=== PATIENT | male | born 1960 | race American Indian/Alaskan Native ===

== ENCOUNTER 2016-10-30 09:09 | Inpatient (IN) | payer OTHER ==
[2016-10-30] MEDS ORDERED: ZOFRAN IV ONE (10:41)
[2016-10-30] MEDS ORDERED: NACL 0.9% 1000 ML 1,000 ML IV ONE ×2 (10:41→11:12)
[2016-10-30] MEDS ORDERED: TORADOL IV ONE (10:41)
--- NOTE | 2016-10-30 10:43 | Emergency Department Report ---
ED Abdominal Pain HPI - General Chief Complaint: Abdominal Pain Stated Complaint: ABD PAIN Time Seen by Provider: 10/30/16 10:25 Source: EMS Mode of arrival: Stretcher Limitations: No Limitations - History of Present Illness MD Complaint: abdominal pain -: Gradual Location: diffuse Radiation: none Migration to: no migration Severity: moderate Severity scale (0 -10): 5 Quality: cramping, aching, fullness Consistency: intermittent Improves With: nothing Worsens With: nothing Associated Symptoms: nausea, vomiting, diarrhea, chills. denies: constipation, dysuria, hematemesis, hematochezia, melena, hematuria, anorexia - Related Data Home Medications Medication Instructions Recorded Confirmed Last Taken No Known Home Medications [No 02/24/15 02/24/15 Unknown Reported Home Medications] Allergies Allergy/AdvReac Type Severity Reaction Status Date / Time No Known Allergies Allergy Verified 02/24/15 23:27 ED Review of Systems ROS: Stated complaint: ABD PAIN Other details as noted in HPI Comment: All other systems reviewed and negative ED Past Medical Hx - Past Medical History Hx Hypertension: Yes - Social History Smoking Status: Current Every Day Smoker Substance Use Type: Alcohol, Cocaine, Marijuana - Medications Home Medications: Home Medications Medication Instructions Recorded Confirmed Last Taken Type No Known Home Medications [No 02/24/15 02/24/15 Unknown History Reported Home Medications] ED Physical Exam - General Limitations: No Limitations General appearance: alert, in no apparent distress - Head Head exam: Present: atraumatic, normocephalic - Eye Eye exam: Present: normal appearance, PERRL - ENT ENT exam: Present: mucous membranes moist - Neck Neck exam: Present: normal inspection - Respiratory Respiratory exam: Present: normal lung sounds bilaterally. Absent: respiratory distress - Cardiovascular Cardiovascular Exam: Present: regular rate, normal rhythm. Absent: systolic murmur, diastolic murmur, rubs, gallop - GI/Abdominal GI/Abdominal exam: Present: soft, normal bowel sounds. Absent: distended, tenderness, guarding, rebound, rigid, hyperactive bowel sounds, hypoactive bowel sounds, organomegaly, mass, bruit, pulsatile mass - Rectal Rectal exam: Present: deferred - Extremities Exam Extremities exam: Present: normal inspection - Back Exam Back exam: Present: normal inspection - Neurological Exam Neurological exam: Present: alert, oriented X3 - Psychiatric Psychiatric exam: Present: normal affect, normal mood - Skin Skin exam: Present: warm, dry, intact, normal color. Absent: rash ED Course Vital Signs 10/30/16 09:30 Temperature 98.3 F Pulse Rate 90 Respiratory 16 Rate Blood Pressure 140/90 O2 Sat by Pulse 97 Oximetry ED Medical Decision Making - Lab Data Result diagrams: 10/30/16 10:25 10/30/16 10:25 - EKG Data EKG shows normal: sinus rhythm - Radiology Data Radiology results: report reviewed, image reviewed - Medical Decision Making will need admission for UGI bleed, vomititng blood with HG at 5.2, transfusing blood at this time, talked to dr. Scott and agree with plan for admission. waiting on GI to call me too. Critical care time in (mins) excluding proc time.: 45 Critical care attestation.: If time is entered above; I have spent that time in minutes in the direct care of this critically ill patient, excluding procedure time. ED Disposition Clinical Impression: Upper gastrointestinal bleeding Disposition: OP ADMITTED IP TO THIS HOSP Is pt being admited?: Yes Does the pt Need Aspirin: No Condition: Fair Referrals: PRIMARY CARE, [Primary Care Provider] - 3-5 Days Time of Disposition: 11:25
[2016-10-30 10:50] LABS: Basophils % (Auto) 0.4 % (0.0-1.8); Eosinophils % (Auto) 0.1 % (0.0-4.3); Mean Corpuscular HGB Conc 31 % (32-34); Mean Corpuscular Volume 81 fl (84-94); Platelet Count 262 K/mm3 (140-440); Red Blood Count 2.09 M/mm3 (3.65-5.03); White Blood Count 13.7 K/mm3 (4.5-11.0)
[2016-10-30 10:54] LABS: Alanine Aminotransferase 7 units/L (7-56); Alkaline Phosphatase 58 units/L (35-129); Anion Gap 17 mmol/L; BUN/Creatinine Ratio 41.53; Blood Urea Nitrogen 54 mg/dL (9-20); Calcium 8.5 mg/dL (8.4-10.2); Carbon Dioxide 34 mmol/L (22-30); Chloride 91.7 mmol/L (98-107); Glucose 114 mg/dL (75-100); Hemoglobin 5.2 gm/dl (11.8-15.2); Lipase 35 units/L (13-60); Sodium 140 mmol/L (137-145); Total Protein 6.1 g/dL (6.3-8.2)
[2016-10-30 10:55] LABS: Hematocrit 16.9 % (35.5-45.6); Mean Corpuscular Hemoglobin 25 pg (28-32); Red Cell Distribution Width 22.3 % (13.2-15.2)
[2016-10-30] MEDS ORDERED: NACL 0.9% 500 ML 500 ML IV ONE (11:12)
[2016-10-30] MEDS ORDERED: PROTONIX IV ONE (11:13)
--- NOTE | 2016-10-30 11:38 | Admit Criteria Form ---
Admission Criteria Documentation: GASTROINTESTINAL BLEEDING, UPPER Clinical Indications for Admission to Inpatient Care ( Place 'X' for any and all applicable criteria): Admission is indicated for ANY ONE of the following(1)(2)(3)(4)(5)(6): [X ]I. Active bleeding (eg, fresh voluminous blood in emesis or nasogastric aspirate) [ ]II. Associated conditions requiring hospitalization (eg, perforation, obstruction from ulcer) [ ]III. Inpatient admission required rather than observation care (Also use Gastrointestinal Bleeding, Upper: Observation Care as appropriate) because of ANY ONE of the following: [ ]a) Hemodynamic instability that is severe or persistent [ ]b) Anemia requiring inpatient admission as indicated by ALL of the following: [ ]1) Presence of significant clinical finding indicated by ANY ONE of the following: [ ]A. Tachycardia for age [ ]B. Orthostatic vital sign changes [ ]C. Cognitive impairment [ ]D. Heart failure [ ]E. Chest pain [ ]F. Exertional dyspnea [ ]G. Other findings suggesting inadequate perfusion (eg, peripheral or myocardial ischemia, end organ dysfunction) [ ]2) Initial (eg, emergency department, observation care) treatment with transfusion or volume replacement is judged inappropriate (due to severity of the finding) or has been ineffective [ ]c) Severe pain requiring acute inpatient management [ ]d) High-risk low platelet count [ ]e) IV fluid to replace significant ongoing losses (greater than 3 L/m2 per day) [ ]f) Immediate inpatient surgery [ ]g) Other condition, treatment or monitoring requiring inpatient admission [ ]IV. Severe liver disease (eg, cirrhosis) [ ]V. Significant active comorbid disease [ ]. Anticoagulation therapy [ ]VII. High-risk endoscopic features (arterial bleeding, adherent clot, nonbleeding visible vessel, varices, flat red spots, ulcer size greater than 2 cm, or portal hypertensive gastropathy) [ ]VIII. Previous aortic graft placement or known aortic aneurysm [ ]IX. Coagulopathy [ ]X. Syncope Extended stay beyond goal length of stay may be needed for(1)(2): [ ]a) Emergency surgery [ ]b) Varices [ ]c) Coagulation abnormalities [ ]d) Recurrent, obscure, or persistent bleeding or continued Hemodynamic instability [ ]e) Associated conditions requiring surgery (eg, perforated gastric ulcer, gastric outlet obstruction) [ ]f) Active comorbidities (eg, renal insufficiency, heart failure, pre- existing liver disease) The original [facility] [employer] content created by [facility] [employer] has been revised. The portions of the content which have been revised are identified through the use of italic text or in bold, and [facility] has neither reviewed nor approved the modified material. All other unmodified content is copyright [facility] [employer] Please see references footnoted in the original [facility] [employer] edition 2016 Admission Criteria Met: Yes
--- NOTE | 2016-10-30 12:01 | Gastroenterology Consultation ---
Addendum entered and electronically signed by HAILY KAUFFMAN NP 10/30/16 12: 09: -No hx of liver disease- PLT count WNL, PT/INR pending Original Note: History of Present Illness - Reason for Consult Consult date: 10/30/16 GI bleed Requesting physician: NIKKIE HUNT - History of Present Illness Pt is a 55 y/o male who is homeless. Admitted for GI bleed with HBG 5.2. Pt reports generalized abd pain, vomiting coffee-ground emesis and melena x 2 days. Denies SOB or CP. Admits to use of cocaine, marijuana, tobacco and daily alcohol of 2 beers. Denies hx of liver disease. No NSAID use. Denies Fhx of CA or ever having EGD/colonoscopy. Past History Past Medical History: No medical history Past Surgical History: No surgical history Social history: single (homeless), smoking, alcohol abuse Medications and Allergies Allergies Allergy/AdvReac Type Severity Reaction Status Date / Time No Known Allergies Allergy Verified 02/24/15 23:27 Home Medications Medication Instructions Recorded Confirmed Last Taken Type No Known Home Medications [No 02/24/15 10/30/16 Unknown History Reported Home Medications] Active Meds: Active Medications Sodium Chloride (Nacl 0.9% 1000 Ml) 1,000 mls @ 999 mls/hr IV BOLUS ONE Stop: 10/30/16 12:12 Review of Systems - Review of Systems All systems: negative Gastrointestinal: abdominal pain, nausea, vomiting, diarrhea, coffee ground emesis, melena Exam - Constitutional Vital Signs: Temp Pulse Resp BP Pulse Ox 98.3 F 90 16 140/90 97 10/30/16 09:30 10/30/16 09:30 10/30/16 09:30 10/30/16 09:30 10/30/16 09:30 General appearance: mild distress - EENT Eyes: PERRL, EOM intact ENT: hearing intact - Neck Neck: normal ROM - Respiratory Respiratory: bilateral: CTA - Cardiovascular Rhythm: regular Heart Sounds: Present: S1 & S2 Extremities: No edema - Gastrointestinal General gastrointestinal: Present: soft, tender (generalized), non-distended, normal bowel sounds - Integumentary Integumentary: Present: warm, dry - Neurologic Neurological: alert and oriented x3 - Psychiatric Psychiatric: appropriate mood/affect, cooperative - Labs CBC & Chem 7: 06/01/17 10:25 10/30/16 10:25 Lab Results: Laboratory Results - last 24 hr 10/30/16 10/30/16 10:25 10:25 WBC 13.7 H RBC 2.09 L Hgb 5.2 L* Hct 16.9 L* MCV 81 L MCH 25 L MCHC 31 L RDW 22.3 H Plt Count 262 Lymph % (Auto) 14.2 [place] % (Auto) 9.9 H Eos % (Auto) 0.1 Baso % (Auto) 0.4 Lymph # 1.9 [place] # 1.4 H Eos # 0.0 Baso # 0.1 Seg Neutrophils % 75.4 H Seg Neutrophils # 10.3 H Sodium 140 Potassium 3.0 L Chloride 91.7 L Carbon Dioxide 34 H Anion Gap 17 BUN 54 H Creatinine 1.3 Estimated GFR > 60 BUN/Creatinine Ratio 41.53 Glucose 114 H Calcium 8.5 Total Bilirubin 0.20 AST 13 ALT 7 Alkaline Phosphatase 58 Total Protein 6.1 L Albumin 3.0 L Albumin/Globulin Ratio 1.0 Lipase 35 Assessment and Plan 1. GI bleed 2. coffee-ground emesis 3. melena - HGB 5.2- pending transfusion of 2 units - continue to monitor H&H post transfusion -Start on PPI gtt -Keep NPO -Avoid any blood thinning medications -Will schedule for EGD tomorrow, unless active bleeding occurs
[2016-10-30 12:18] LABS: INR 1.02 (0.87-1.13)
[2016-10-30] MEDS ORDERED: TYLENOL PO PRN (14:04)
[2016-10-30] MEDS ORDERED: DULCOLAX PR PRN (14:04)
[2016-10-30] MEDS ORDERED: MILK OF MAGNESIA PO PRN (14:04)
[2016-10-30] MEDS ORDERED: ATIVAN IV PRN (14:04)
[2016-10-30] MEDS: PROTONIX 80 MG in NACL 0.9% 100 ML IV SCH ×2 (14:09→23:33)
--- NOTE | 2016-10-30 14:11 | History and Physical Report ---
History of Present Illness Date of examination: 10/30/16 Date of admission: 10/30/16 11:25 Chief complaint: Abdomin pain and bloody diarrhea History of present illness: 55-year-old -[place] male presented to the ED with complaints of abdomen pain and bloody stools started this morning. Patient stated that he had multiple vomiting and nausea yesterday. Patient could not described the emesis content. Patient has a past medical history of hypertension, diabetes, alcohol abuse, oral surgeries of teeth extractions. All 4 top front teeth n some lower teeth are missing. Patient reported that he drinks 1 to 2 beers daily and he is homeless. Past History Past Medical History: No medical history, diabetes, hypertension Past Surgical History: No surgical history, Other (Oral (teeth extractions) ) Social history: single (homeless), smoking, alcohol abuse Family history: hypertension Medications and Allergies Allergies Allergy/AdvReac Type Severity Reaction Status Date / Time No Known Allergies Allergy Verified 02/24/15 23:27 Home Medications Medication Instructions Recorded Confirmed Last Taken Type No Known Home Medications [No 02/24/15 10/30/16 Unknown History Reported Home Medications] Active Meds: Active Medications Pantoprazole Sodium 80 mg/ (Sodium Chloride) 100 mls @ 10 mls/hr IV Q10H JUANA PRN Reason: 8 MG/HR Last Admin: 10/30/16 14:09 Dose: 8 mg/hr, 10 mls/hr Review of Systems Constitutional: fatigue, malaise, no weight loss, no weight gain, no fever, no chills Cardiovascular: no chest pain, no syncope Respiratory: no cough, no cough with sputum Gastrointestinal: abdominal pain, vomiting, diarrhea, melena, no hematemesis, no coffee ground emesis Rectal: no pain Musculoskeletal: no gait dysfunction Integumentary: no rash Neurological: no head injury, no syncope Psychiatric: no anxiety, no suicidal ideation, no depression Endocrine: fatigue Exam - Constitutional Vitals: Temp Pulse Resp BP Pulse Ox 97.9 F 90 14 142/68 100 10/30/16 13:06 10/30/16 13:06 10/30/16 13:06 10/30/16 13:06 10/30/16 13:06 General appearance: Present: malodorous (Oral). Absent: no acute distress - EENT Eyes: Present: PERRL, EOM intact ENT: hearing intact, clear oral mucosa - Neck Neck: Present: supple, normal ROM - Respiratory Respiratory effort: normal Respiratory: bilateral: CTA - Cardiovascular Heart Sounds: Present: S1 & S2. Absent: rub, click - Extremities Extremities: pulses intact, No edema Peripheral Pulses: within normal limits - Abdominal General gastrointestinal: Present: soft. Absent: non-tender Male genitourinary: Present: normal - Integumentary Integumentary: Present: warm, dry - Musculoskeletal Musculoskeletal: generalized weakness - Psychiatric Psychiatric: cooperative - Neurologic Neurologic: moves all extremities - Allied Health Allied health notes reviewed: nursing Results - Labs CBC & Chem 7: 10/30/16 10:25 10/30/16 10:25 Labs: Laboratory Last Values WBC 13.7 K/mm3 (4.5-11.0) H 10/30/16 10:25 RBC 2.09 M/mm3 (3.65-5.03) L 10/30/16 10:25 Hgb 5.2 gm/dl (11.8-15.2) L* 10/30/16 10:25 Hct 16.9 % (35.5-45.6) L* 10/30/16 10:25 MCV 81 fl (84-94) L 10/30/16 10:25 MCH 25 pg (28-32) L 10/30/16 10:25 MCHC 31 % (32-34) L 10/30/16 10:25 RDW 22.3 % (13.2-15.2) H 10/30/16 10:25 Plt Count 262 K/mm3 (140-440) 10/30/16 10:25 Lymph % (Auto) 14.2 % (13.4-35.0) 10/30/16 10:25 [place] % (Auto) 9.9 % (0.0-7.3) H 10/30/16 10:25 Eos % (Auto) 0.1 % (0.0-4.3) 10/30/16 10:25 Baso % (Auto) 0.4 % (0.0-1.8) 10/30/16 10:25 Lymph # 1.9 K/mm3 (1.2-5.4) 10/30/16 10:25 [place] # 1.4 K/mm3 (0.0-0.8) H 10/30/16 10:25 Eos # 0.0 K/mm3 (0.0-0.4) 10/30/16 10:25 Baso # 0.1 K/mm3 (0.0-0.1) 10/30/16 10:25 Seg Neutrophils % 75.4 % (40.0-70.0) H 10/30/16 10:25 Seg Neutrophils # 10.3 K/mm3 (1.8-7.7) H 10/30/16 10:25 PT 13.3 Sec. (12.2-14.9) 10/30/16 11:38 INR 1.02 (0.87-1.13) 10/30/16 11:38 Sodium 140 mmol/L (137-145) 10/30/16 10:25 Potassium 3.0 mmol/L (3.6-5.0) L 10/30/16 10:25 Chloride 91.7 mmol/L (98-107) L 10/30/16 10:25 Carbon Dioxide 34 mmol/L (22-30) H 10/30/16 10:25 Anion Gap 17 mmol/L 10/30/16 10:25 BUN 54 mg/dL (9-20) H 10/30/16 10:25 Creatinine 1.3 mg/dL (0.8-1.5) 10/30/16 10:25 Estimated GFR > 60 ml/min 10/30/16 10:25 BUN/Creatinine Ratio 41.53 % 10/30/16 10:25 Glucose 114 mg/dL (75-100) H 10/30/16 10:25 Calcium 8.5 mg/dL (8.4-10.2) 10/30/16 10:25 Total Bilirubin 0.20 mg/dL (0.1-1.2) 10/30/16 10:25 AST 13 units/L (5-40) 10/30/16 10:25 ALT 7 units/L (7-56) 10/30/16 10:25 Alkaline Phosphatase 58 units/L (35-129) 10/30/16 10:25 Total Protein 6.1 g/dL (6.3-8.2) L 10/30/16 10:25 Albumin 3.0 g/dL (3.9-5) L 10/30/16 10:25 Albumin/Globulin Ratio 1.0 % 10/30/16 10:25 Lipase 35 units/L (13-60) 10/30/16 10:25 Blood Type O POSITIVE 10/30/16 11:37 Antibody Screen TNR 10/30/16 11:37 JUAN JOSÉ Antibody Screen Negative 10/30/16 11:37 Crossmatch See Detail 10/30/16 11:37 Assessment and Plan Assessment and plan: 55-year-old -[place] male presented to the ED with complaints of abdomen pain and bloody stools started this morning. Patient stated that he had multiple vomiting and nausea yesterday. Patient could not described the emesis content. Patient has a past medical history of hypertension, diabetes, alcohol abuse, oral surgeries of teeth extractions. All 4 top front teeth n some lower teeth are missing. Patient reported that he drinks 1 to 2 beers daily and he is homeless. On exam, patient alert oriented and seemed a little agitated because he wants to eat. Patient denies current abdomen pain, diarrhea , fever, chills. 1. Anemia due to Acute GI Blood loss - chest x-ray, EKG, serial H&H, packed red blood cells ordered 2. GI Bleed - Consult GI, Pt NPO, IV Protonix 3. Abdomin pain not due to trauma - pain medication when necessary ordered 4. Malnutrition - Albumin 3.0 - Phonograph Mechanic Consult 5. Alcohol abuse-patient placed on CIWA protocol 6. Hypertension- patient currently normotensive, antihypertensive medication when necessary ordered 7. DM-monitor Accu-Checks, insulin sliding scale ordered 8. DVT prophylaxis-Lovenox ordered Advance Directives: Yes VTE prophylaxis?: Chemical Plan of care discussed with patient/family: Yes
[2016-10-30] MEDS ORDERED: D50W (25GM) IV PRN (14:13)
--- NOTE | 2016-10-30 14:31 | XRay Report ---
ABDOMEN RADIOGRAPHS INDICATION: Abdominal pain. COMPARISON: 02/25/2015 CT. FINDINGS: Frontal abdominal radiographs demonstrate nonobstructive bowel gas pattern. Colonic stool, most about the hepatic flexure/possible constipation. Approximately 5 mm left renal calculus inferiorly again noted. No pneumatosis or pneumoperitoneum. Clear visualized lung bases. Bilateral SI joint degenerative sclerosis. Mild lumbar degenerative changes and curvature, possibly positional versus scoliosis. CONCLUSION: No acute abdominal radiographic abnormality with possible constipation and stable 5 mm left lower renal calculus, as described. Thank you for the opportunity to participate in this patient's care.
[2016-10-30] MEDS ORDERED: LOVENOX SUB-Q ONE (14:43)
[2016-10-30] MEDS: NOVOLOG SUB-Q SCH ×2 (17:44→22:53)
[2016-10-30] MEDS ORDERED: PNEUMOVAX 23 IM ONE (20:56)
[2016-10-30] MEDS ORDERED: FLUARIX QUAD 2016-2017(36 MOS+) IM ONE (20:56)
[2016-10-31] MEDS ORDERED: PROTONIX 80 MG in NACL 0.9% 100 ML IV SCH (01:00)
[2016-10-31] MEDS: NACL 0.45% 1000 ML 1,000 ML IV SCH ×2 (07:09→17:11)
[2016-10-31 09:56] LABS: Hemoglobin 6.1 gm/dl (11.8-15.2); Mean Corpuscular HGB Conc 32 % (32-34); Mean Corpuscular Hemoglobin 27 pg (28-32); Mean Corpuscular Volume 83 fl (84-94); Platelet Count 211 K/mm3 (140-440); Red Blood Count 2.31 M/mm3 (3.65-5.03); White Blood Count 10.8 K/mm3 (4.5-11.0)
[2016-10-31 10:02] LABS: Hematocrit 19.2 % (35.5-45.6); Red Cell Distribution Width 20.3 % (13.2-15.2)
[2016-10-31] MEDS: NOVOLOG SUB-Q SCH ×4 (10:49→22:39)
[2016-10-31] MEDS ORDERED: NACL 0.9% 500 ML 500 ML IV ONE ×2 (11:07→22:00)
--- NOTE | 2016-10-31 11:09 | Progress Note ---
Assessment and Plan Assessment and plan: --Severe Acute blood loss anemia Secondary to GI bleeding, type and cross transfuse total 4 units of PRBC Closely monitor H&H, GI following --Acute gastrointestinal bleeding Initially patient was nothing by mouth status for endoscopy No clear liquids, endoscopy scheduled for tomorrow GI following --[id number] protein calorie malnutrition Supportive care and dietary supplements been stable --History of alcohol use Closely monitor for alcohol withdrawal symptoms, continue CIWA protocol Thymin folic acid IV fluids --Hypokalemia; replenish per protocol and monitor levels --DVT prophylaxis; no pharmacologic anticoagulation in view of severe bleeding and anemia Will use SCDs DC planning and case management and patient is stable Consults and recommendations noted and appreciated This closely monitor the patient and adjust the management as needed Plan of care discussed with the patient, his nurse as well as the case management History Interval history: Patient was seen and evaluated in his room this morning medical records reviewed Admitted with severe anemia secondary to acute blood loss secondary to GI bleeding Received 2 units of PRBC with minimal improvement Patient is upset that he was not given food GI rescheduled endoscopy for tomorrow since patient's H&H was still low Patient is alert awake oriented 3 not in acute distress Vital signs reviewed Hospitalist Physical - Constitutional Vitals: Temp Pulse Resp BP Pulse Ox 97.7 F 82 17 105/66 100 10/31/16 08:00 10/31/16 08:00 10/31/16 08:00 10/31/16 08:00 10/31/16 08:33 General appearance: Present: no acute distress, cachectic, disheveled - EENT Eyes: Present: PERRL, EOM intact - Neck Neck: Present: supple, normal ROM - Respiratory Respiratory effort: normal Respiratory: negative: rales, rhonchi, wheezing - Cardiovascular Rhythm: regular Heart Sounds: Present: S1 & S2 - Extremities Extremities: no ischemia, pulses intact, pulses symmetrical Peripheral Pulses: within normal limits - Abdominal General gastrointestinal: soft, non-tender, non-distended, normal bowel sounds - Integumentary Integumentary: Present: clear, warm, pale - Psychiatric Psychiatric: appropriate mood/affect, cooperative - Neurologic Neurologic: CNII-XII intact, moves all extremities Results - Labs CBC & Chem 7: 10/31/16 09:33 10/31/16 09:33 Labs: Laboratory Last Values WBC 10.8 K/mm3 (4.5-11.0) 10/31/16 09:33 RBC 2.31 M/mm3 (3.65-5.03) L 10/31/16 09:33 Hgb 6.1 gm/dl (11.8-15.2) L 10/31/16 09:33 Hct 19.2 % (35.5-45.6) L* 10/31/16 09:33 MCV 83 fl (84-94) L 10/31/16 09:33 MCH 27 pg (28-32) L 10/31/16 09:33 MCHC 32 % (32-34) 10/31/16 09:33 RDW 20.3 % (13.2-15.2) H 10/31/16 09:33 Plt Count 211 K/mm3 (140-440) 10/31/16 09:33 Lymph % (Auto) 14.2 % (13.4-35.0) 10/30/16 10:25 [place] % (Auto) 9.9 % (0.0-7.3) H 10/30/16 10:25 Eos % (Auto) 0.1 % (0.0-4.3) 10/30/16 10:25 Baso % (Auto) 0.4 % (0.0-1.8) 10/30/16 10:25 Lymph # 1.9 K/mm3 (1.2-5.4) 10/30/16 10:25 [place] # 1.4 K/mm3 (0.0-0.8) H 10/30/16 10:25 Eos # 0.0 K/mm3 (0.0-0.4) 10/30/16 10:25 Baso # 0.1 K/mm3 (0.0-0.1) 10/30/16 10:25 Seg Neutrophils % 75.4 % (40.0-70.0) H 10/30/16 10:25 Seg Neutrophils # 10.3 K/mm3 (1.8-7.7) H 10/30/16 10:25 PT 13.3 Sec. (12.2-14.9) 10/30/16 11:38 INR 1.02 (0.87-1.13) 10/30/16 11:38 Sodium 140 mmol/L (137-145) 10/30/16 10:25 Potassium 3.4 mmol/L (3.6-5.0) L 10/31/16 09:33 Chloride 91.7 mmol/L (98-107) L 10/30/16 10:25 Carbon Dioxide 34 mmol/L (22-30) H 10/30/16 10:25 Anion Gap 17 mmol/L 10/30/16 10:25 BUN 54 mg/dL (9-20) H 10/30/16 10:25 Creatinine 1.3 mg/dL (0.8-1.5) 10/30/16 10:25 Estimated GFR > 60 ml/min 10/30/16 10:25 BUN/Creatinine Ratio 41.53 % 10/30/16 10:25 Glucose 114 mg/dL (75-100) H 10/30/16 10:25 POC Glucose 103 (70-105) 10/31/16 06:29 Calcium 8.5 mg/dL (8.4-10.2) 10/30/16 10:25 Total Bilirubin 0.20 mg/dL (0.1-1.2) 10/30/16 10:25 AST 13 units/L (5-40) 10/30/16 10:25 ALT 7 units/L (7-56) 10/30/16 10:25 Alkaline Phosphatase 58 units/L (35-129) 10/30/16 10:25 Total Protein 6.1 g/dL (6.3-8.2) L 10/30/16 10:25 Albumin 3.0 g/dL (3.9-5) L 10/30/16 10:25 Albumin/Globulin Ratio 1.0 % 10/30/16 10:25 Lipase 35 units/L (13-60) 10/30/16 10:25 Blood Type O POSITIVE 10/30/16 11:37 Antibody Screen TNR 10/30/16 11:37 JUAN JOSÉ Antibody Screen Negative 10/30/16 11:37 Crossmatch See Detail 10/30/16 11:37
--- NOTE | 2016-10-31 11:16 | Gastroenterology Progress Note ---
Assessment and Plan 1. GI bleed 2. coffee-ground emesis 3. melena - HGB 6.1 today after 1 unit yesterday- 2 more units ordered for today - continue to trend H&H post transfusion -continue PPI gtt -avoid blood thinning medications - Will order soft diet for today and then NPO after MN -Cx EGD for today, will reschedule for tomorrow -will follow Subjective Date of service: 10/31/16 Interval history: Pt lying in bed. No acute distress. Requesting to eat. Denies N/V, diarrhea, or abd pain today. Objective - Constitutional Vitals: Temp Pulse Resp BP Pulse Ox 97.7 F 82 17 105/66 100 10/31/16 08:00 10/31/16 08:00 10/31/16 08:00 10/31/16 08:00 10/31/16 08:33 General appearance: no acute distress - EENT Eyes: PERRL, EOM intact ENT: hearing intact - Respiratory Respiratory: bilateral: CTA - Cardiovascular Rhythm: regular Heart Sounds: Present: S1 & S2 - Extremities Extremities: No edema - Gastrointestinal General gastrointestinal: Present: soft, non-tender, non-distended, normal bowel sounds - Integumentary Integumentary: Present: warm, dry - Neurologic Neurological: alert and oriented x3 - Psychiatric Psychiatric: appropriate mood/affect, cooperative - Labs CBC & Chem 7: 10/31/16 09:33 10/31/16 09:33 Labs: Laboratory Results - last 24 hr 10/30/16 10/30/16 10/30/16 11:37 11:38 17:41 WBC RBC Hgb Hct MCV MCH MCHC RDW Plt Count PT 13.3 INR 1.02 Potassium POC Glucose 89 Blood Type O POSITIVE Antibody Screen TNR JUAN JOSÉ Antibody Screen Negative Crossmatch See Detail 10/30/16 10/31/16 10/31/16 21:13 06:29 09:33 WBC 10.8 RBC 2.31 L Hgb 6.1 L Hct 19.2 L* MCV 83 L MCH 27 L MCHC 32 RDW 20.3 H Plt Count 211 PT INR Potassium POC Glucose 156 H 103 Blood Type Antibody Screen JUAN JOSÉ Antibody Screen Crossmatch 10/31/16 09:33 WBC RBC Hgb Hct MCV MCH MCHC RDW Plt Count PT INR Potassium 3.4 L POC Glucose Blood Type Antibody Screen JUAN JOSÉ Antibody Screen Crossmatch
[2016-10-31] MEDS ORDERED: PNEUMOVAX 23 IM ONE (12:00)
[2016-10-31] MEDS ORDERED: FLUARIX QUAD 2016-2017(36 MOS+) IM ONE (12:00)
[2016-11-01] MEDS: NACL 0.45% 1000 ML 1,000 ML IV SCH (05:51)
[2016-11-01] MEDS: NOVOLOG SUB-Q SCH ×4 (07:52→21:20)
[2016-11-01 08:04] LABS: Basophils % (Auto) 0.2 % (0.0-1.8); Eosinophils % (Auto) 0.8 % (0.0-4.3); Hemoglobin 7.5 gm/dl (11.8-15.2); Mean Corpuscular HGB Conc 33 % (32-34); Mean Corpuscular Hemoglobin 27 pg (28-32); Mean Corpuscular Volume 82 fl (84-94); Platelet Count 207 K/mm3 (140-440); Red Cell Distribution Width 17.9 % (13.2-15.2); White Blood Count 8.6 K/mm3 (4.5-11.0)
[2016-11-01 08:26] LABS: Anion Gap 13 mmol/L; Blood Urea Nitrogen 18 mg/dL (9-20); Carbon Dioxide 28 mmol/L (22-30); Chloride 100.4 mmol/L (98-107); Glucose 100 mg/dL (75-100); Potassium 3.5 mmol/L (3.6-5.0); Sodium 138 mmol/L (137-145)
[2016-11-01] MEDS ORDERED: VITAMIN B-1 PO SCH (10:00)
[2016-11-01] MEDS ORDERED: FOLVITE PO SCH (10:00)
--- NOTE | 2016-11-01 10:39 | Progress Note ---
Assessment and Plan Assessment and plan: -- Acute blood loss anemia Secondary to GI bleeding, received total 4 units of PRBC Hemoglobin improved from 5.2 - 7.5 Closely monitor H&H, she is additional PRBC if needed Scheduled for endoscopy tomorrow --Acute gastrointestinal bleeding No new Episodes of bleeding, received transfusion Endoscopy tomorrow per GI --[id number] protein calorie malnutrition Supportive care and dietary supplements been stable --History of alcohol use Closely monitor for alcohol withdrawal symptoms, continue CIWA protocol Thiamin and folic acid, then when necessary Colon screening done patient strongly advised to quit alcohol intake --Hypokalemia; replenish per protocol and monitor levels --DVT prophylaxis; no pharmacologic anticoagulation in view of severe bleeding and anemia Will use SCDs DC planning and case management and patient is stable Consults and recommendations noted and appreciated Plan of care discussed with the patient, his nurse as well as the case management History Interval history: Patient seen and evaluated in his room medical records reviewed No new events reported by the nursing staff Received 4 units of PRBC No new episodes of bleeding, endoscopy scheduled for tomorrow He does known U complaints Alert of a "into 3 not in acute distress vital signs are stable Hospitalist Physical - Constitutional Vitals: Temp Pulse Resp BP Pulse Ox 99.6 F 81 18 138/72 100 11/01/16 07:10 11/01/16 07:10 11/01/16 07:10 11/01/16 07:10 11/01/16 07:10 General appearance: Present: no acute distress, cachectic, disheveled - EENT Eyes: Present: PERRL, EOM intact - Neck Neck: Present: supple, normal ROM - Respiratory Respiratory effort: normal Respiratory: bilateral: diminished, negative: rales, rhonchi, wheezing - Cardiovascular Rhythm: regular Heart Sounds: Present: S1 & S2 - Extremities Extremities: no ischemia, pulses intact, pulses symmetrical Peripheral Pulses: within normal limits - Abdominal General gastrointestinal: soft, non-tender, non-distended, normal bowel sounds - Integumentary Integumentary: Present: clear, warm - Psychiatric Psychiatric: appropriate mood/affect, cooperative - Neurologic Neurologic: CNII-XII intact, moves all extremities Results - Labs CBC & Chem 7: 11/01/16 11:45 11/01/16 07:17 Labs: Laboratory Last Values WBC 8.6 K/mm3 (4.5-11.0) 11/01/16 07:17 RBC 2.80 M/mm3 (3.65-5.03) L 11/01/16 07:17 Hgb 7.5 gm/dl (11.8-15.2) L 11/01/16 07:17 Hct 23.0 % (35.5-45.6) L 11/01/16 07:17 MCV 82 fl (84-94) L 11/01/16 07:17 MCH 27 pg (28-32) L 11/01/16 07:17 MCHC 33 % (32-34) 11/01/16 07:17 RDW 17.9 % (13.2-15.2) H 11/01/16 07:17 Plt Count 207 K/mm3 (140-440) 11/01/16 07:17 Lymph % (Auto) 20.9 % (13.4-35.0) 11/01/16 07:17 [place] % (Auto) 9.9 % (0.0-7.3) H 11/01/16 07:17 Eos % (Auto) 0.8 % (0.0-4.3) 11/01/16 07:17 Baso % (Auto) 0.2 % (0.0-1.8) 11/01/16 07:17 Lymph # 1.8 K/mm3 (1.2-5.4) 11/01/16 07:17 [place] # 0.9 K/mm3 (0.0-0.8) H 11/01/16 07:17 Eos # 0.1 K/mm3 (0.0-0.4) 11/01/16 07:17 Baso # 0.0 K/mm3 (0.0-0.1) 11/01/16 07:17 Seg Neutrophils % 68.2 % (40.0-70.0) 11/01/16 07: Seg Neutrophils # 5.8 K/mm3 (1.8-7.7) 11/01/16 07:17 PT 13.3 Sec. (12.2-14.9) 10/30/16 11:38 INR 1.02 (0.87-1.13) 10/30/16 11:38 Sodium 138 mmol/L (137-145) 11/01/16 07:17 Potassium 3.5 mmol/L (3.6-5.0) L 11/01/16 07:17 Chloride 100.4 mmol/L (98-107) 11/01/16 07:17 Carbon Dioxide 28 mmol/L (22-30) 11/01/16 07:17 Anion Gap 13 mmol/L 11/01/16 07:17 BUN 18 mg/dL (9-20) 11/01/16 07:17 Creatinine 0.9 mg/dL (0.8-1.5) 11/01/16 07:17 Estimated GFR > 60 ml/min 11/01/16 07:17 BUN/Creatinine Ratio 20.00 % 11/01/16 07:17 Glucose 100 mg/dL (75-100) 11/01/16 07:17 POC Glucose 115 (70-105) H 11/01/16 06:08 Calcium 8.0 mg/dL (8.4-10.2) L 11/01/16 07:17 Magnesium 2.40 mg/dL (1.7-2.3) H 11/01/16 07:17 Total Bilirubin 0.20 mg/dL (0.1-1.2) 10/30/16 10:25 AST 13 units/L (5-40) 10/30/16 10:25 ALT 7 units/L (7-56) 10/30/16 10:25 Alkaline Phosphatase 58 units/L (35-129) 10/30/16 10:25 Total Protein 6.1 g/dL (6.3-8.2) L 10/30/16 10:25 Albumin 3.0 g/dL (3.9-5) L 10/30/16 10:25 Albumin/Globulin Ratio 1.0 % 10/30/16 10:25 Lipase 35 units/L (13-60) 10/30/16 10:25 Blood Type O POSITIVE 10/30/16 11:37 Antibody Screen TNR 10/30/16 11:37 JUAN JOSÉ Antibody Screen Negative 10/30/16 11:37 Crossmatch See Detail 10/30/16 11:37
[2016-11-01] MEDS: KCL 10MEQ/100ML 10 MEQ/100 ML BAG IV SCH ×2 (12:23→14:38)
[2016-11-01 12:49] LABS: Hematocrit 22.9 % (35.5-45.6); Hemoglobin 7.5 gm/dl (11.8-15.2)
--- NOTE | 2016-11-01 18:19 | Gastroenterology Progress Note ---
Assessment and Plan - Patient Problems (1) Upper gastrointestinal bleeding Current Visit: Yes Status: Acute Plan to address problem: - Patient clinically stabilized and will start protonix PO rather than gtt. - Continue MVI therapy. - EGD in the AM given hematemesis. Consider colonoscopy if negative. Subjective Date of service: 11/01/16 Principal diagnosis: Hematemesis Interval history: The patient ate breakfast this AM, and was unable to get his EGD. However, he has no N/V/abdominal pain today. He is tolerating a regular diet without emesis nor melena. Objective - Constitutional Vitals: Temp Pulse Resp BP Pulse Ox 98.1 F 92 H 20 116/71 99 11/01/16 14:50 11/01/16 14:50 11/01/16 14:50 11/01/16 14:50 11/01/16 14:50 General appearance: no acute distress - EENT Eyes: PERRL, EOM intact ENT: poor dentition - Respiratory Respiratory effort: normal Respiratory: bilateral: CTA - Cardiovascular Rhythm: regular Heart Sounds: Present: S1 & S2 - Gastrointestinal General gastrointestinal: Present: soft, non-tender, non-distended - Labs CBC & Chem 7: 11/01/16 11:45 11/01/16 07:17 Labs: Laboratory Results - last 24 hr 10/30/16 10/31/16 11/01/16 11:37 21:41 06:08 WBC RBC Hgb Hct MCV MCH MCHC RDW Plt Count Lymph % (Auto) [place] % (Auto) Eos % (Auto) Baso % (Auto) Lymph # Dixon # Eos # Baso # Seg Neutrophils % Seg Neutrophils # Sodium Potassium Chloride Carbon Dioxide Anion Gap BUN Creatinine Estimated GFR BUN/Creatinine Ratio Glucose POC Glucose 120 H 115 H Calcium Magnesium Blood Type O POSITIVE Antibody Screen TNR JUAN JOSÉ Antibody Screen Negative Crossmatch See Detail 11/01/16 11/01/16 11/01/16 07:17 07:17 11:45 WBC 8.6 RBC 2.80 L Hgb 7.5 L 7.5 L Hct 23.0 L 22.9 L MCV 82 L MCH 27 L MCHC 33 RDW 17.9 H Plt Count 207 Lymph % (Auto) 20.9 Dixon % (Auto) 9.9 H Eos % (Auto) 0.8 Baso % (Auto) 0.2 Lymph # 1.8 Dixon # 0.9 H Eos # 0.1 Baso # 0.0 Seg Neutrophils % 68.2 Seg Neutrophils # 5.8 Sodium 138 Potassium 3.5 L Chloride 100.4 Carbon Dioxide 28 Anion Gap 13 BUN 18 Creatinine 0.9 Estimated GFR > 60 BUN/Creatinine Ratio 20.00 Glucose 100 POC Glucose Calcium 8.0 L Magnesium 2.40 H Blood Type Antibody Screen JUAN JOSÉ Antibody Screen Crossmatch 11/01/16 11/01/16 11:48 17:35 WBC RBC Hgb Hct MCV MCH MCHC RDW Plt Count Lymph % (Auto) Dixon % (Auto) Eos % (Auto) Baso % (Auto) Lymph # Dixon # Eos # Baso # Seg Neutrophils % Seg Neutrophils # Sodium Potassium Chloride Carbon Dioxide Anion Gap BUN Creatinine Estimated GFR BUN/Creatinine Ratio Glucose POC Glucose 107 H 115 H Calcium Magnesium Blood Type Antibody Screen JUAN JOSÉ Antibody Screen Crossmatch
[2016-11-02] MEDS ORDERED: WATER FOR IRRIG STERILE IR ONE (06:45)
[2016-11-02] MEDS ORDERED: NACL 0.9% 1000 ML 1,000 ML IV SCH (07:00)
--- NOTE | 2016-11-02 08:13 | Anesthesia Consultation ---
Anesthesia Consult and Med Hx - Airway Anesthetic Teeth Evaluation: Poor (multiple loose and broken teeth) ROM Head & Neck: Adequate Mental/Hyoid Distance: Adequate Mallampati Class: Class II Intubation Access Assessment: Probably Good - Pre-Operative Health Status ASA Pre-Surgery Classification: ASA3 Proposed Anesthetic Plan: MAC - Pulmonary Hx Smoking: Yes (current everyday smoker) - Cardiovascular System Hx Hypertension: Yes - Central Nervous System Hx Psychiatric Problems: No - Endocrine Hx Insulin Dependent Diabetes: Yes - Hematic Hx Anemia: Yes (severe anemia) - Other Systems Hx Alcohol Use: Yes (2 beers/day)
--- NOTE | 2016-11-02 08:14 | Anesthesia Day of Surgery ---
Anesthesia Day of Surgery - Day of Surgery Patient Examined: Yes Patient H&P Reviewed: Yes Patient is NPO: Yes
[2016-11-02] MEDS ORDERED: DIPRIVAN 10 MG/ML IV ONE (08:50)
[2016-11-02] MEDS ORDERED: XYLOCAINE MPF 2% ONE (08:51)
--- NOTE | 2016-11-02 09:03 | Post Operative Note ---
Pre-op diagnosis: Hematemesis Post-op diagnosis: other (Ulcer) Findings: 1. 1.5cm gastric ulcer at incisura; food and pigment in base; not actively bleeding - Margins biopsied for cancer or H pylori 2. Moderate amount of food in stomach; no evidence of gastric outlet obstruction Procedure: EGD with cold bx Anesthesia: MAC Surgeon: DEEPAK SALGUERO Estimated blood loss: minimal Pathology: list (1. Gastric ulcer) Specimen disposition: to lab Condition: stable Disposition: floor (Recs: 1. Continue protonix PO. 2. Patient must avoid all NSAIDs. 3. MVI daily. 4. Advance diet and OK to d/c home when taking PO and hct stable. 5. Ulcer is large and high risk to rebleed; if rebleeds, would recommend angiographic embolization.)
--- NOTE | 2016-11-02 09:30 | Operative Report ---
PROCEDURE PERFORMED: Esophagogastroduodenoscopy with cold biopsy. PREOPERATIVE DIAGNOSES: Hematemesis and anemia. POSTOPERATIVE DIAGNOSIS: Gastric ulcer. ENDOSCOPIST: Simone Barahona M.D. INSTRUMENT: AudioBeta video endoscope. MEDICATIONS: Currently MAC anesthesia by Anesthesia Services. COMPLICATIONS: No apparent complications. ESTIMATED BLOOD LOSS: Minimal. SPECIMENS: Gastric ulcer. IMPLANTS: None. CITIZENSHIP INSTRUCTOR: None. CONDITION AT COMPLETION: Stable. TECHNIQUE: The patient was informed of the risks and benefits of the procedure. He signed the informed consent to proceed. He was placed in the left lateral decubitus position. The above sedative medications were given. His vital signs remained stable throughout the procedure. The instrument was advanced from the mouth to the second portion of the duodenum under direct visualization. At that point, the bowel was insufflated and the endoscope was slowly withdrawn. FINDINGS: 1. Normal duodenum. 2. 1.5 cm gastric ulcer at the incisura; it was deep and cratered. a. There were food and pigmented material at the base. b. There was no active bleeding, but visualization was obscured due to the large amount of food in the crater. c. The margins were biopsied for cancer or H. pylori collect. 3. Moderate amount of retained food in the fundus of the stomach; there was no evidence of gastric outlet obstruction. 4. Normal esophagus. RECOMMENDATIONS: 1. Continue oral Protonix. 2. The patient must avoid all nonsteroidal anti-inflammatory drugs. 3. Multivitamin daily therapy. 4. Advance diet and okay to discharge the patient home when he is taking oral food and his hematocrit is stable. 5. The ulcer is quite large and would be considered high risk to rebleed; if it rebleeds, I would recommend angiographic embolization. JOB# [id number] HENRY/OFELIA
[2016-11-02] MEDS: NOVOLOG SUB-Q SCH ×2 (09:57→14:06)
[2016-11-02] MEDS: THERAGRAN-M Tab PO SCH (10:21)
[2016-11-02] MEDS: PROTONIX PO SCH (10:21)
--- NOTE | 2016-11-02 10:50 | Progress Note ---
Assessment and Plan Assessment and plan: --Acute gastrointestinal bleeding Status post endoscopy; 1.5cm gastric ulcer at incisura; food and pigment in base ; not actively bleeding - Margins biopsied for cancer or H pylori -Moderate amount of food in stomach; no evidence of gastric outlet obstruction Continue protonix PO. ,avoid all NSAIDs.,MVI daily. Ulcer is large and high risk to rebleed; if rebleeds, would recommend angiographic embolization.) -- Acute blood loss anemia Secondary to GI bleeding,s/p total 4 units of PRBC and patient Hemoglobin improved from 5.2 - 7.9 --[id number] protein calorie malnutrition Supportive care and dietary supplements been stable --History of alcohol use Closely monitor for alcohol withdrawal symptoms, continue CIWA protocol Thiamin and folic acid, then when necessary --Hypokalemia; replenish per protocol and monitor levels --DVT prophylaxis; no pharmacologic anticoagulation in view of severe bleeding and anemia Will use SCDs DC planning and case management, Patient is homeless from intermediate, and return to intermediate at discharge medically stable History Interval history: Patient seen and evaluated medical records reviewed Patient underwent EGD this morning, findings revealed Patient feels better no new episodes of bleeding Received total 4 units of PRBCs with mild improvement of his H&H Alert awake oriented 3 not in acute distress Vital signs reviewed, stable Hospitalist Physical - Constitutional Vitals: Temp Pulse Resp BP Pulse Ox 99 F 75 22 126/75 100 11/02/16 08:53 11/02/16 09:13 11/02/16 09:13 11/02/16 09:13 11/02/16 09:13 General appearance: Present: no acute distress, cachectic, disheveled - EENT Eyes: Present: PERRL, EOM intact - Neck Neck: Present: supple, normal ROM - Respiratory Respiratory effort: normal Respiratory: bilateral: diminished, negative: rales, rhonchi, wheezing - Cardiovascular Rhythm: regular Heart Sounds: Present: S1 & S2 - Extremities Extremities: no ischemia, pulses intact, pulses symmetrical Peripheral Pulses: within normal limits - Abdominal General gastrointestinal: soft, non-tender, non-distended, normal bowel sounds - Integumentary Integumentary: Present: clear, warm - Psychiatric Psychiatric: appropriate mood/affect, cooperative - Neurologic Neurologic: CNII-XII intact, moves all extremities Results - Labs CBC & Chem 7: 11/02/16 10:44 11/02/16 10:44 Labs: Laboratory Last Values WBC 8.6 K/mm3 (4.5-11.0) 11/01/16 07:17 RBC 2.80 M/mm3 (3.65-5.03) L 11/01/16 07:17 Hgb 7.5 gm/dl (11.8-15.2) L 11/01/16 11:45 Hct 22.9 % (35.5-45.6) L 11/01/16 11:45 MCV 82 fl (84-94) L 11/01/16 07:17 MCH 27 pg (28-32) L 11/01/16 07: MCHC 33 % (32-34) 11/01/16 07: RDW 17.9 % (13.2-15.2) H 11/01/16 07:17 Plt Count 207 K/mm3 (140-440) 11/01/16 07:17 Lymph % (Auto) 20.9 % (13.4-35.0) 11/01/16 07:17 [place] % (Auto) 9.9 % (0.0-7.3) H 11/01/16 07:17 Eos % (Auto) 0.8 % (0.0-4.3) 11/01/16 07:17 Baso % (Auto) 0.2 % (0.0-1.8) 11/01/16 07:17 Lymph # 1.8 K/mm3 (1.2-5.4) 11/01/16 07:17 [place] # 0.9 K/mm3 (0.0-0.8) H 11/01/16 07:17 Eos # 0.1 K/mm3 (0.0-0.4) 11/01/16 07:17 Baso # 0.0 K/mm3 (0.0-0.1) 11/01/16 07:17 Seg Neutrophils % 68.2 % (40.0-70.0) 11/01/16 07:17 Seg Neutrophils # 5.8 K/mm3 (1.8-7.7) 11/01/16 07:17 PT 13.3 Sec. (12.2-14.9) 10/30/16 11:38 INR 1.02 (0.87-1.13) 10/30/16 11:38 Sodium 138 mmol/L (137-145) 11/01/16 07:17 Potassium 3.5 mmol/L (3.6-5.0) L 11/01/16 07:17 Chloride 100.4 mmol/L (98-107) 11/01/16 07:17 Carbon Dioxide 28 mmol/L (22-30) 11/01/16 07:17 Anion Gap 13 mmol/L 11/01/16 07:17 BUN 18 mg/dL (9-20) 11/01/16 07:17 Creatinine 0.9 mg/dL (0.8-1.5) 11/01/16 07:17 Estimated GFR > 60 ml/min 11/01/16 07:17 BUN/Creatinine Ratio 20.00 % 11/01/16 07:17 Glucose 100 mg/dL (75-100) 11/01/16 07:17 POC Glucose 96 (70-105) 11/02/16 06:11 Calcium 8.0 mg/dL (8.4-10.2) L 11/01/16 07:17 Magnesium 2.40 mg/dL (1.7-2.3) H 11/01/16 07:17 Total Bilirubin 0.20 mg/dL (0.1-1.2) 10/30/16 10:25 AST 13 units/L (5-40) 10/30/16 10:25 ALT 7 units/L (7-56) 10/30/16 10:25 Alkaline Phosphatase 58 units/L (35-129) 10/30/16 10:25 Total Protein 6.1 g/dL (6.3-8.2) L 10/30/16 10:25 Albumin 3.0 g/dL (3.9-5) L 10/30/16 10:25 Albumin/Globulin Ratio 1.0 % 10/30/16 10:25 Lipase 35 units/L (13-60) 10/30/16 10:25 Blood Type O POSITIVE 10/30/16 11:37 Antibody Screen TNR 10/30/16 11:37 JUAN JOSÉ Antibody Screen Negative 10/30/16 11:37 Crossmatch See Detail 10/30/16 11:37
[2016-11-02 11:13] LABS: Anion Gap 16 mmol/L; BUN/Creatinine Ratio 13.75; Blood Urea Nitrogen 11 mg/dL (9-20); Calcium 8.2 mg/dL (8.4-10.2); Carbon Dioxide 23 mmol/L (22-30); Glucose 110 mg/dL (75-100); Potassium 3.7 mmol/L (3.6-5.0); Sodium 136 mmol/L (137-145)
[2016-11-02 11:19] LABS: Basophils % (Auto) 0.2 % (0.0-1.8); Eosinophils % (Auto) 1.5 % (0.0-4.3); Hematocrit 24.2 % (35.5-45.6); Hemoglobin 7.9 gm/dl (11.8-15.2); Mean Corpuscular HGB Conc 33 % (32-34); Mean Corpuscular Hemoglobin 27 pg (28-32); Mean Corpuscular Volume 83 fl (84-94); Platelet Count 226 K/mm3 (140-440); White Blood Count 10.4 K/mm3 (4.5-11.0)
--- NOTE | 2016-11-02 12:16 | Post Anesthesia Evaluation ---
- Post Anesthesia Evaluation Patient Participated: Yes Airway Patent: Yes Stable Respiratory Function: Yes Temp > 96.8F: Yes Pain Manageable: Yes Adequeate Hydration: Yes Anesthesia Complications: No Block Receding Appropriately: Not Applicable
[2016-11-03 08:24] LABS: Basophils % (Auto) 0.7 % (0.0-1.8); Eosinophils % (Auto) 1.5 % (0.0-4.3); Hematocrit 23.9 % (35.5-45.6); Hemoglobin 7.9 gm/dl (11.8-15.2); Mean Corpuscular HGB Conc 33 % (32-34); Mean Corpuscular Hemoglobin 28 pg (28-32); Mean Corpuscular Volume 84 fl (84-94); Platelet Count 246 K/mm3 (140-440); Red Blood Count 2.85 M/mm3 (3.65-5.03); Red Cell Distribution Width 18.2 % (13.2-15.2); White Blood Count 10.4 K/mm3 (4.5-11.0)
[2016-11-03 08:27] VITALS: BP 146/70
[2016-11-03 08:31] LABS: Anion Gap 15 mmol/L; BUN/Creatinine Ratio 15.71; Blood Urea Nitrogen 11 mg/dL (9-20); Calcium 8.2 mg/dL (8.4-10.2); Carbon Dioxide 23 mmol/L (22-30); Chloride 104.3 mmol/L (98-107); Glucose 100 mg/dL (75-100); Sodium 138 mmol/L (137-145)
[2016-11-03 08:35] LABS: Potassium 4.5 mmol/L (3.6-5.0)
[2016-11-03] MEDS: THERAGRAN-M Tab PO SCH (09:25)
[2016-11-03] MEDS: PROTONIX PO SCH (09:25)
--- NOTE | 2016-11-03 11:23 | Discharge Summary ---
Providers - Providers Date of Admission: 10/30/16 11:25 Date of discharge: 11/03/16 Attending physician: BARRETT PACHCEO 10/30/16 17:55 Consult to Dietitian/Nutrition [CONS] Routine Physician Instructions: Reason For Exam: Reason for Consult: Nutrition Recommendations Reason for Consult: Malnutrition Primary care physician: THEATRE MANAGER Hospitalization Condition: Fair Disposition: DC/TX ANOTHER TYPE HEALTHCARE Core Measure Documentation - Palliative Care Palliative Care/ Comfort Measures: Not Applicable - Core Measures Any of the following diagnoses?: none Exam - Constitutional Vitals: Temp Pulse Resp BP Pulse Ox 98.5 F 80 18 146/70 97 11/03/16 08:00 11/03/16 08:00 11/03/16 08:00 11/03/16 08:00 11/03/16 08:00 Plan Activity: no restrictions Diet: regular Special Instructions: smoking cessation Additional Instructions: Avoid arpirin,NSAIDs. If you have Hematemesis or rectal bleeding,contact MD or go to ER Follow up with: PRIMARY CARE, [Primary Care Provider] - 3-5 Days HORTENSIA RUIZ MD [Staff Physician] - 7 Days Prescriptions: Ferrous Sulfate [Feosol 325 MG tab] 325 mg PO BID #60 tablet Multivitamin Tab W-MINERAL [Multiple Vitamin/Mineral (Theragran M)] 1 each PO QDAY #30 tablet Pantoprazole [Protonix TAB] 40 mg PO QDAY #30 tablet
--- NOTE | 2016-11-03 11:32 | Gastroenterology Progress Note ---
Assessment and Plan 1. GI bleed 2. coffee-ground emesis 3. melena - s/p EGD- revealing gastric ulcer - pathology-pending - H&H stable -no signs of active bleeding overnight or today and tolerating diet -okay to d/c home from GI standpoint -d/c home on protonix -avoid NSAIDs -discussed with patient the need to follow-up with office visit in 2 weeks and office information given to patient -GI will sign off Subjective Date of service: 11/03/16 Principal diagnosis: Hematemesis Interval history: Pt lying in bed. No acute distress. Tolerating diet. Denies N/V, diarrhea, or abd pain today. Objective - Constitutional Vitals: Temp Pulse Resp BP Pulse Ox 98.5 F 80 18 146/70 97 11/03/16 08:00 11/03/16 08:00 11/03/16 08:00 11/03/16 08:00 11/03/16 08:00 General appearance: no acute distress - EENT Eyes: PERRL, EOM intact ENT: hearing intact - Neck Neck: supple, normal ROM - Respiratory Respiratory: bilateral: CTA - Cardiovascular Rhythm: regular Heart Sounds: Present: S1 & S2 - Extremities Extremities: No edema - Gastrointestinal General gastrointestinal: Present: soft, non-tender, non-distended, normal bowel sounds - Integumentary Integumentary: Present: warm, dry - Neurologic Neurological: alert and oriented x3 - Psychiatric Psychiatric: appropriate mood/affect, cooperative - Labs CBC & Chem 7: 11/03/16 07:36 11/03/16 07:36 Labs: Laboratory Results - last 24 hr 11/03/16 11/03/16 07:36 07:36 WBC 10.4 RBC 2.85 L Hgb 7.9 L Hct 23.9 L MCV 84 MCH 28 MCHC 33 RDW 18.2 H Plt Count 246 Lymph % (Auto) 17.0 [place] % (Auto) 12.0 H Eos % (Auto) 1.5 Baso % (Auto) 0.7 Lymph # 1.8 Dawson # 1.3 H Eos # 0.2 Baso # 0.1 Seg Neutrophils % 68.8 Seg Neutrophils # 7.2 Sodium 138 Potassium 4.5 D Chloride 104.3 Carbon Dioxide 23 Anion Gap 15 BUN 11 Creatinine 0.7 L Estimated GFR > 60 BUN/Creatinine Ratio 15.71 Glucose 100 Calcium 8.2 L
== END 2016-11-03 15:30 | disposition short-term general hospital (02) | DRG 378 ==
LOC: ED 09:09 → 3A 11:25
PROVIDERS: ADMIT Internal Medicine; ATTEND Internal Medicine
PROC: 30233N1 Transfusion of Nonautologous Red Blood Cells into Peripheral Vein, Percutaneous Approach (ICD-10-PCS; 2016-10-30)
PROC: 3E0234Z Introduction of Serum, Toxoid and Vaccine into Muscle, Percutaneous Approach (ICD-10-PCS; 2016-10-31)
PROC: 0DB98ZX Excision of Duodenum, Via Natural or Artificial Opening Endoscopic, Diagnostic (ICD-10-PCS; principal; 2016-11-02)
DX: K92.0 Hematemesis (principal); D62 Acute posthemorrhagic anemia; E44.0 Moderate protein-calorie malnutrition; K25.9 Gastric ulcer, unspecified as acute or chronic, without hemorrhage or perforation; K92.1 Melena; I10 Essential (primary) hypertension; F17.200 Nicotine dependence, unspecified, uncomplicated; E11.9 Type 2 diabetes mellitus without complications; F10.10 Alcohol abuse, uncomplicated; F14.90 Cocaine use, unspecified, uncomplicated; F12.90 Cannabis use, unspecified, uncomplicated; E87.6 Hypokalemia; Z68.23 Body mass index [BMI] 23.0-23.9, adult; Z59.0 Homelessness; Z82.49 Family history of ischemic heart disease and other diseases of the circulatory system; Z23 Encounter for immunization; Z71.6 Tobacco abuse counseling
CPT/HCPCS: 36415; 74020; 80048; 80053; 82962; 83690; 83735; 84132; 85014; 85018; 85025; 85027; 85610; 86850; 86900; 86901; 86920; 88305; 88342; 90686; 90732; 96374; 96375; 99291; C9113; J1650; J1885; J2060; J2405; J2704; J3480; J7030; J7040; P9016

== ENCOUNTER 2019-12-29 13:39 | Emergency (ER) | payer SELFPAY ==
[2019-12-29 14:12] VITALS: BP 131/75
--- NOTE | 2019-12-29 17:55 | Emergency Department Report ---
Chief Complaint: Medical Clearance Stated Complaint: ETOH - HPI History of Present Illness: 59-year-old -[place] male reports to the emergency room stating that his legs were hurting but are now feeling better after laying down. Patient denies any recent falls or accidents. Patient states that he is homeless and just needed somewhere to lay down. Patient reports that he ate something today. Patient has a history of diabetes and hypertension. Patient reports he does not take any medications. Patient reports that he is an alcoholic. - Exam Vital Signs: Vital Signs 12/29/19 14:10 Temperature 97.8 F Pulse Rate 95 H Respiratory 18 Rate Blood Pressure 131/75 O2 Sat by Pulse 97 Oximetry Physical Exam: Alert and oriented x3 no acute distress very unkept. Very pleasant. Ambulatory without difficulties. MSE screening note: Focused history and physical exam performed. Due to findings the following was ordered: 59-year-old -[place] male reports to the emergency room stating that his legs were hurting but are now feeling better after laying down. Patient denies any recent falls or accidents. Patient states that he is homeless and just needed somewhere to lay down. Patient reports that he ate something today. Patient has a history of diabetes and hypertension. Patient reports he does not take any medications. Patient reports that he is an alcoholic. ED Disposition for MSE Clinical Impression: Chronic leg pain, Homeless Disposition: Z- MED SCREENING EXAM-LEFT Is pt being admited?: No Does the pt Need Aspirin: No Condition: Stable Additional Instructions: Follow-up with your healthcare provider. Referrals: PRIMARY CARE, [Primary Care Provider] - 3-5 Days [facility] [Outside] - 3-5 Days [facility] [Provider Group] - 3-5 Days
== END 2019-12-29 18:33 | disposition left against medical advice (07) ==
LOC: ED 13:39
DX: M79.605 Pain in left leg (principal); Z53.21 Procedure and treatment not carried out due to patient leaving prior to being seen by health care provider

== ENCOUNTER 2020-11-18 02:45 | Emergency (ER) | payer SELFPAY ==
[2020-11-18 03:52] VITALS: BP 117/71
[2020-11-18] MEDS ORDERED: ACETAMINOPHEN 500 MG TAB PO ONE (05:34)
[2020-11-18] MEDS ORDERED: NEOMY 3.5 MG/BACIT 400 UNITS/POLY B 5000 UNITS/GM OINT PACKET TP ONE ×2 (05:34→05:35)
--- NOTE | 2020-11-18 05:39 | Emergency Department Report ---
ED Lower Extremity HPI - General Chief Complaint: Extremity Injury, Lower Stated Complaint: LT FOOT PAIN Source: patient, EMS Mode of arrival: Ambulatory Limitations: No Limitations - History of Present Illness Initial Comments: Patient is a 59-year-old -[place] male with a history of hypertension and [id number] diabetes who presents to the ED with complaint of acute onset persistent painful bleeding multiple toes and toenails after he accidentally and aggressively clipped multiple left toenails about 6 hours ago. Patient states that the bleeding is well controlled at this time but that he would like to be evaluated for the same. Patient denies fall, numbness and tingling or weakness of left foot, dizziness, syncope, back pain, chest pain, shortness of breath, nausea and vomiting or change in vision. MD Complaint: foot injury (Multiple left toe abrasions and pain) -: Sudden, hour(s) (6) Injury: Toes: Left (Multiple left toe abrasions) Type of Injury: laceration Place: home Severity: mild Severity scale (0 -10): 2 Improves With: nothing Worsens With: nothing Context: other (Extensive clipping of left toenails leading to multiple abrasions) Associated Symptoms: unable to bear weight, ambulatory. denies: snap/pop sensation, swelling, numbness, tingling - Related Data Previous Rx's Medication Instructions Recorded Last Taken Type Ferrous Sulfate [Feosol 325 MG tab] 325 mg PO BID #60 tablet 11/03/16 Unknown Rx Multivitamin Tab W-MINERAL 1 each PO QDAY #30 tablet 11/03/16 Unknown Rx [Multiple Vitamin/Mineral (Theragran M)] Pantoprazole [Protonix TAB] 40 mg PO QDAY #30 tablet 11/03/16 Unknown Rx Acetaminophen [Tylenol] 500 mg PO Q6HR PRN #30 tablet 11/18/20 Unknown Rx Sulfamethoxazole/Trimethoprim 1 each PO Q12H #20 tablet 11/18/20 Unknown Rx [Bactrim DS TAB] Allergies Allergy/AdvReac Type Severity Reaction Status Date / Time No Known Allergies Allergy Verified 12/29/19 14:06 ED Review of Systems ROS: Stated complaint: LT FOOT PAIN Other details as noted in HPI Constitutional: denies: chills, fever Eyes: denies: eye pain, eye discharge, vision change ENT: denies: ear pain, throat pain Respiratory: denies: cough, shortness of breath, wheezing Cardiovascular: denies: chest pain, palpitations Endocrine: no symptoms reported Gastrointestinal: denies: abdominal pain, nausea, diarrhea Genitourinary: denies: urgency, dysuria Musculoskeletal: arthralgia (Multiple left toe pains due to multiple left toe abrasions). denies: back pain, joint swelling, myalgia Skin: other (Bleeding abrasion wounds on multiple left toes). denies: rash, lesions Neurological: denies: headache, weakness, paresthesias Psychiatric: anxiety. denies: depression Hematological/Lymphatic: denies: easy bleeding, easy bruising ED Past Medical Hx - Past Medical History Previous Medical History?: No Hx Hypertension: Yes Hx Diabetes: Yes Additional medical history: anemia, blood transfusion - Surgical History Past Surgical History?: No Additional Surgical History: gastric surgery - Social History Smoking Status: Unknown if ever smoked Substance Use Type: None - Medications Home Medications: Home Medications Medication Instructions Recorded Confirmed Last Taken Type Ferrous Sulfate [Feosol 325 MG tab] 325 mg PO BID #60 tablet 11/03/16 Unknown Rx Multivitamin Tab W-MINERAL 1 each PO QDAY #30 tablet 11/03/16 Unknown Rx [Multiple Vitamin/Mineral (Theragran M)] Pantoprazole [Protonix TAB] 40 mg PO QDAY #30 tablet 11/03/16 Unknown Rx Acetaminophen [Tylenol] 500 mg PO Q6HR PRN #30 tablet 11/18/20 Unknown Rx Sulfamethoxazole/Trimethoprim 1 each PO Q12H #20 tablet 11/18/20 Unknown Rx [Bactrim DS TAB] ED Physical Exam - General Limitations: No Limitations General appearance: alert, in no apparent distress - Head Head exam: Present: atraumatic, normocephalic, normal inspection - Eye Eye exam: Present: normal appearance, PERRL, EOMI Pupils: Present: normal accommodation - ENT ENT exam: Present: normal exam, normal orophraynx, mucous membranes moist, TM's normal bilaterally, normal external ear exam - Neck Neck exam: Present: normal inspection, full ROM - Respiratory Respiratory exam: Present: normal lung sounds bilaterally. Absent: respiratory distress, wheezes, rales, rhonchi, chest wall tenderness, accessory muscle use, decreased breath sounds, prolonged expiratory - Cardiovascular Cardiovascular Exam: Present: regular rate, normal rhythm, normal heart sounds. Absent: systolic murmur, diastolic murmur, rubs, gallop - GI/Abdominal GI/Abdominal exam: Present: soft, normal bowel sounds. Absent: distended, tenderness, guarding, rebound, hyperactive bowel sounds, hypoactive bowel sounds, organomegaly - Extremities Exam Extremities exam: Present: normal inspection, full ROM, tenderness (Palpable mild distal multiple toenails due to abrasion wounds), normal capillary refill. Absent: joint swelling, calf tenderness - Back Exam Back exam: Present: normal inspection, full ROM. Absent: tenderness, CVA tenderness (R), CVA tenderness (L), muscle spasm, paraspinal tenderness, vertebral tenderness - Neurological Exam Neurological exam: Present: alert, oriented X3, CN II-XII intact, normal gait, reflexes normal - Psychiatric Psychiatric exam: Present: normal affect, normal mood - Skin Skin exam: Present: warm, dry, intact, normal color, abrasion (Multiple bleeding abrasion wounds on multiple distal left toes). Absent: rash ED Course Vital Signs 11/18/20 03:49 Temperature 97.1 F L Pulse Rate 87 Respiratory 16 Rate Blood Pressure 117/71 O2 Sat by Pulse 95 Oximetry ED Lower Extremity MDM - Medical Decision Making This is a 59-year-old -[place] male with a history of hypertension and [id number] diabetes who presents to the ED with complaint of acute onset persistent painful bleeding multiple toes and toenails after he accidentally and aggressively clipped multiple left toenails about 6 hours ago. Patient states that the bleeding is well controlled at this time but that he wo uld like to be evaluated for the same. In the ED, patient is alert and oriented x3 and is not in any distress. Patient is hemodynamically stable. Patient was treated for pain in the ED and they abrasion wounds on distal multiple left toes were cleaned with normal saline and Neosporin ointment applied. The abrasion wounds were then dressed appropriately and the patient was discharged home on me dications including prophylactic antibiotics. Patient was advised to follow-up with his primary care physician in 5 to 7 days for reevaluation. Patient was advised return to the ED immediately if symptoms get worse. - Differential Diagnosis Abrasion; nail avulsions; foot contusion Critical care attestation.: If time is entered above; I have spent that time in minutes in the direct care of this critically ill patient, excluding procedure time. ED Disposition Clinical Impression: Abrasion of left foot or toe Contusion of left foot including toes Qualifiers: Encounter type: initial encounter Qualified Code(s): S90.32XA - Contusion of left foot, initial encounter; S90.122A - Contusion of left lesser toe(s) without damage to nail, initial encounter Disposition: TO HOME OR SELFCARE Is pt being admited?: No Does the pt Need Aspirin: No Condition: Stable Instructions: Foot Contusion, [id number], Abrasion, [id number] Additional Instructions: Take medication with food, drink plenty of fluids and follow-up with your primary care physician in 5 to 7 days for reevaluation. Return to the ED immediately if symptoms get worse. Prescriptions: Acetaminophen [Tylenol] 500 mg PO Q6HR PRN #30 tablet PRN Reason: Pain , Severe (7-10) Sulfamethoxazole/Trimethoprim [Bactrim DS TAB] 1 each PO Q12H #20 tablet Referrals: [facility] [Provider Group] - 3-5 Days Time of Disposition: 05:45 Print Language: [id number]
== END 2020-11-18 06:00 | disposition home or self-care (01) ==
LOC: ED 02:45
DX: S90.32XA Contusion of left foot, initial encounter (principal); S90.122A Contusion of left lesser toe(s) without damage to nail, initial encounter; I10 Essential (primary) hypertension; E11.9 Type 2 diabetes mellitus without complications; Z98.890 Other specified postprocedural states; Z79.899 Other long term (current) drug therapy; X58.XXXA Exposure to other specified factors, initial encounter; Y93.89 Activity, other specified; Y92.89 Other specified places as the place of occurrence of the external cause; Y99.8 Other external cause status
CPT/HCPCS: 99283; A6250